=== PATIENT | female | born 1950 | race Caucasian/White ===

== ENCOUNTER 2017-07-11 12:48 | Emergency (ER) | payer MEDICARE, OTHER ==
[~2017-07-11] VITALS: Ht 147.3 cm; Wt 88.4 kg
[2017-07-11 12:50] VITALS: Ht 147.3 cm; Wt 88.4 kg
[2017-07-11] MEDS ORDERED: HYDROCODONE/APAP (5/325) TAB PO ONE (14:00)
--- NOTE | 2017-07-11 14:25 | RADRPT ---
PROCEDURE: XR Left Shoulder. CLINICAL INDICATION: Left shoulder pain TECHNIQUE: 3 views of the left shoulder are available for review. COMPARISON: None available FINDINGS: There is no acute fracture. Alignment is normal. There is mild acromioclavicular osteoarthrosis. Soft tissues are grossly unremarkable. IMPRESSION: 1. No radiographic evidence of acute osseous abnormality. 2. Mild acromioclavicular osteoarthrosis. RPTAT: [facility] .Pedro Deutsch MD, MD Date Time Electronically viewed and signed by .Pedro Deutsch MD, on 07/11/2017 14:24 .K/
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
[2017-07-11] MEDS ORDERED: IBUP-1542 PO (16:35)
[2017-07-11] MEDS ORDERED: METH750T93 PO (16:35)
[2017-07-11] MEDS ORDERED: HYDR-906 PO (16:35)
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
== END 2017-07-11 17:22 | disposition home or self-care (01) ==
LOC: FTE 12:48
DX: S39.012A Strain of muscle, fascia and tendon of lower back, initial encounter (principal); S46.912A Strain of unspecified muscle, fascia and tendon at shoulder and upper arm level, left arm, initial encounter; V49.50XA Passenger injured in collision with unspecified motor vehicles in traffic accident, initial encounter
CPT/HCPCS: 72110; 73030

== ENCOUNTER 2018-01-26 07:49 | Day surgery (SDC) | END 2018-01-26 15:39 | disposition home or self-care (01) ==

== ENCOUNTER 2018-10-26 11:34 | Emergency (ER) | payer OTHER ==
[~2018-10-26] VITALS: Ht 157.5 cm; Wt 85.1 kg
[~2018-10-26 11:34] MED LIST: ASPIRIN; CHOLESTEROL MED; DIABETES MED; HTN MED
[2018-10-26 12:00] VITALS: Ht 157.5 cm; Wt 85.1 kg
[2018-10-26] MEDS ORDERED: ACETAMINOPHEN 325 MG TAB PO ONE (14:00)
[2018-10-26] MEDS ORDERED: ACET500C5 PO (15:03)
--- NOTE | 2018-10-26 15:05 | ERD ---
ER Documentation Chief Complaint Chief Complaint c/o left wrist pain, fell last week. No deformity HPI 68-year-old female tripped and fell on outstretched hand last week. She has left wrist pain. She has no restricted range of motion weakness. No history of head injury, neck pain, bleeding, lacerations, additional complaints. ROS All systems reviewed and are negative except as per history of present illness. Medications Home Meds Active Scripts Acetaminophen* (Tylophen*) 500 Mg Capsule, 1 CAP PO Q6H PRN for PAIN AND OR ELEVATED TEMP, #20 CAP Prov:NAHUN GARSIA MD 10/26/18 Reported Medications [Cholesterol Med] No Conflict Check 01/26/18 [Diabetes Med] No Conflict Check 01/26/18 [Htn Med] No Conflict Check 01/26/18 [Aspirin] No Conflict Check 01/26/18 Allergies Allergies: Coded Allergies: No Known Drug Allergy (Verified Allergy, Unknown, 06/19/09) PMhx/Soc History of Surgery: Yes (RIGHT MASTECTOMY) Anesthesia Reaction: No Hx Neurological Disorder: No Hx Respiratory Disorders: No Hx Cardiac Disorders: Yes (HTN, HYPERLIPIDEMIA) Hx Psychiatric Problems: No Hx Miscellaneous Medical Probl: Yes (DM) Hx Alcohol Use: No Hx Substance Use: No Hx Tobacco Use: No Smoking Status: Never smoker FmHx Family History: No diabetes, No coronary disease, No other Physical Exam Vitals Vital Signs Date Temp Pulse Resp B/P (MAP) Pulse Ox O2 O2 Flow FiO2 Time Delivery Rate 10/26/18 98.9 77 20 149/82 96 12:00 (104) Physical Exam Const: No acute distress Head: Atraumatic Eyes: Normal Conjunctiva ENT: Normal External Ears, Nose and Mouth. Neck: Full range of motion. No meningismus. Resp: Clear to auscultation bilaterally Cardio: Regular rate and rhythm, no murmurs Abd: Soft, non tender, non distended. Normal bowel sounds Skin: No petechiae or rashes Back: No midline or flank tenderness Ext: No cyanosis, or edema. Mild left wrist distal radius tenderness without deformities. No snuffbox tenderness. No restricted range of motion or deficits or warmth erythema or lacerations. Neur: Awake and alert Psych: Normal Mood and Affect Results 24 hrs Current Medications Medications Dose Sig/Ty Start Time Status Last (Trade) Ordered Route PRN Stop Time Admin Dose Reason Admin 650 mg ONCE ONCE 10/26/18 DC 10/26/18 Acetaminophen PO 14:00 10/26/18 13:39 (Tylenol 14:01 Tab) Procedures/MDM X-ray left wrist 3V Interpreted by me: Scaphoid: Normal Bones: No fracture Joints: No dislocation Foreign body: None. Impression-no acute fracture dislocation of the left wrist. Small calcification subcutaneously on the volar aspect likely artifactual or chronic. Patient presents with left wrist pain after fall last week. She has no signs of fracture, dislocation, infection, ischemia or deficits. She is placed in a left wrist Velcro brace and was neurovascular intact after brace. Patient was discharged home with recommendations for Tylenol, ice, primary care follow-up and orthopedic evaluation for pain next week. She should return sooner for fevers, redness, new worsening symptoms. The patient was stable with no new complaints during the ER course. Clinically, there is no current evidence to suggest meningitis, sepsis, acute abdomen, pneumonia, stroke, acute coronary syndrome, pulmonary embolism, aortic dissection or any other emergent condition appearing to require further evaluation or hospitalization. Patient counseled regarding my diagnostic impression and care plan. Prior to discharge all questions answered. Pt agrees with treatment plan and understands strict return precautions. Pt is instructed to follow up with primary care provider within 24- 48 hours. Precautionary instructions provided including instructions to return to the ER if not improving or for any worsening or changing symptoms or concerns. Departure Diagnosis: Primary Impression: Wrist injury Encounter type: initial encounter Laterality: left Qualified Codes: S69.92XA - Unspecified injury of left wrist, hand and finger(s), initial encounter Additional Impressions: Hypertension Hypertension type: essential hypertension Qualified Codes: I10 - Essential (primary) hypertension Diabetes Condition: Stable Patient Instructions: Wrist Sprain Referrals: PREET CROW MD Additional Instructions: No fracture seen on x-ray. Likely sprain. Recommend ice at home. Recheck with primary doctor and possibly orthopedist for pain next week. Recheck sooner for fevers, redness, new worsening symptoms. NAHUN GARSIA MD Oct 26, 2018 15:05
[2018-10-26 15:32] VITALS: BP 148/82; PULSE 72; RESP 18
== END 2018-10-26 15:30 | disposition home or self-care (01) ==
LOC: FTE 11:34
DX: S69.92XA Unspecified injury of left wrist, hand and finger(s), initial encounter (principal); I10 Essential (primary) hypertension; E11.9 Type 2 diabetes mellitus without complications; W01.0XXA Fall on same level from slipping, tripping and stumbling without subsequent striking against object, initial encounter; Y92.9 Unspecified place or not applicable